=== PATIENT | male | born 1965 | race Caucasian/White ===

== ENCOUNTER 2016-11-22 14:40 | Observation (INO) | payer OTHER ==
[2016-11-22] VITALS (7 sets, daily range): BP systolic 141–178; BP diastolic 97–108; PULSE 64–84; RESP 18–21; TEMP 97.6–98; O2SAT 97–99
[~2016-11-22] VITALS: Ht 190.5 cm; Wt 97.0 kg
--- NOTE | 2016-11-22 14:55 | PD ---
Physical Exam Date Seen by Provider: Nov 22, 2016 Time Seen by Provider: 14:54 Narrative 50 yo male here for chest pain. No ACS history. Has had this since yesterday. Some SOB. No radiation of the pain. Pain is 7/10. Pain at this moment. Vitals are stable in triage. Awaiting Bed placement. Data Data Last Documented VS Vital Signs Date Time Temp Pulse Resp B/P (MAP) Pulse Ox O2 Delivery O2 Flow Rate FiO2 11/22/16 14:41 75 20 178/108 (131) 98 MDM Medical Record Reviewed: Yes Supervised Visit with KRISHAN: King Estrada Nov 22, 2016 14:55
[2016-11-22 15:29] LABS: BASOPHIL % 0.3 % (0.0-2.0); EOSINOPHIL # 0.1 TH/MM3 (0-0.4); HEMATOCRIT 42.4 % (39.0-51.0); HEMO FLAGS DIFF FINAL; LYMPH % 38.5 % (9.0-44.0); LYMPHOCYTE # 2.3 TH/MM3 (1.0-4.8); MEAN CELL VOLUME 90.3 FL (80.0-100.0); MEAN CORPUSCULAR HEMOGLOBIN 30.9 PG (27.0-34.0); MEAN CORPUSCULAR HGB CONC 34.2 % (32.0-36.0); MONO % 8.8 % (0.0-8.0); NEUT % 50.4 % (16.0-70.0); PLATELET COUNT 182 TH/MM3 (150-450); RED CELL DISTRIBUTION WIDTH 12.8 % (11.6-17.2); WHITE BLOOD COUNT 6.1 TH/MM3 (4.0-11.0)
[2016-11-22 15:38] LABS: APTT (PATIENT) 26.4 SEC (24.3-30.1); INTERNATIONAL NORMALIZED RATIO 0.9 RATIO; PROTHROMBIN TIME - PATIENT 10.3 SEC (9.8-11.6)
--- NOTE | 2016-11-22 15:40 | RADRPT ---
EXAM DATE/TIME: 11/22/2016 15:23 [place] COMPARISON: No previous studies available for comparison. INDICATIONS : Chest pain last night. Short of breath MEDICAL HISTORY : None. SURGICAL HISTORY : None. ENCOUNTER: Initial ACUITY: 1 day PAIN SCORE: 7/10 LOCATION: Bilateral chest FINDINGS: PA and lateral views of the chest demonstrate the lungs to be symmetrically aerated without evidence of mass, infiltrate or effusion. The cardiomediastinal contours are unremarkable. Osseous structure s are intact. CONCLUSION: Normal examination. Yohan Flores Jr., MD on November 22, 2016 at 15:38 Board Certified Radiologist. This report was verified electronically.
--- NOTE | 2016-11-22 15:42 | PD ---
HPI Chief Complaint: Chest Pain Time Seen by Provider: 15:36 Travel History International Travel<30 days: No Contact w/Intl Traveler<30days: No Traveled to known affect area: No History of Present Illness HPI 50-year-old male with no significant medical history presents to emergency department for evaluation of left-sided chest pain. He first experienced it last evening when he was getting ready for bed. He states it has waxed and waned throughout the day. When he is experiencing it, he has a lightheaded sensation and aching numbness or tingling in his left arm. He cannot think of any exacerbating or alleviating factors. 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 Denies any cardiac history. Denies a familial cardiac history. He does not take any current medications. He did take 2 aspirin this morning. He denies any recent illnesses, fever, or chills. No nausea or vomiting. No abdominal pain. He has no other symptoms to report. FORMERLY [facility] Past Medical History Medical History: Denies Significant Hx Social History Alcohol Use: Yes Tobacco Use: No Substance Use: No Allergies-Medications (Allergen,Severity, Reaction): Coded Allergies: No Known Allergies (Unverified , 11/22/16) Reported Meds & Prescriptions Reported Meds & Active Scripts Active No Active Prescriptions or Reported Medications Review of Systems Except as stated in HPI: all other systems reviewed are Neg Physical Exam Narrative GENERAL: Well-nourished male patient, in no acute distress. SKIN: Focused skin assessment warm/dry. HEAD: Atraumatic. Normocephalic. EYES: Pupils equal and round. No scleral icterus. No injection or drainage. ENT: No nasal bleeding or discharge. Mucous membranes pink and moist. NECK: Trachea midline. No JVD. CARDIOVASCULAR: Regular rate and rhythm. No murmur appreciated. RESPIRATORY: No accessory muscle use. Clear to auscultation. Breath sounds equal bilaterally. GASTROINTESTINAL: Abdomen soft, non-tender, nondistended. Hepatic and splenic margins not palpable. MUSCULOSKELETAL: No obvious deformities. No clubbing. No cyanosis. No edema. NEUROLOGICAL: Awake and alert. No obvious cranial nerve deficits. Motor grossly within normal limits. Normal speech. PSYCHIATRIC: Appropriate mood and affect; insight and judgment normal. Data Data Last Documented VS Vital Signs Date Time Temp Pulse Resp B/P (MAP) Pulse Ox O2 Delivery O2 Flow Rate FiO2 11/22/16 15:46 68 21 151/103 (119) 97 Room Air Orders Orders Electrocardiogram (11/22/16 14:52) Basic Metabolic Panel (Bmp) (11/22/16 14:52) Ckmb (Isoenzyme) Profile (11/22/16 14:52) Complete Blood Count With Diff (11/22/16 14:52) Magnesium (Mg) (11/22/16 14:52) Prothrombin Time / Inr (Pt) (11/22/16 14:52) Act Partial Throm Time (Ptt) (11/22/16 14:52) Troponin I (11/22/16 14:52) Lipase (11/22/16 14:52) Chest, Pa & Lat (11/22/16 14:52) Admit Order (Ed Use Only) (11/22/16 15:59) Labs Laboratory Tests Test 11/22/16 15:03 White Blood Count 6.1 TH/MM3 Red Blood Count 4.70 MIL/MM3 Hemoglobin 14.5 GM/DL Hematocrit 42.4 % Mean Corpuscular Volume 90.3 FL Mean Corpuscular Hemoglobin 30.9 PG Mean Corpuscular Hemoglobin Concent 34.2 % Red Cell Distribution Width 12.8 % Platelet Count 182 TH/MM3 Mean Platelet Volume 7.7 FL Neutrophils (%) (Auto) 50.4 % Lymphocytes (%) (Auto) 38.5 % Monocytes (%) (Auto) 8.8 % Eosinophils (%) (Auto) 2.0 % Basophils (%) (Auto) 0.3 % Neutrophils # (Auto) 3.0 TH/MM3 Lymphocytes # (Auto) 2.3 TH/MM3 Monocytes # (Auto) 0.5 TH/MM3 Eosinophils # (Auto) 0.1 TH/MM3 Basophils # (Auto) 0.0 TH/MM3 CBC Comment DIFF FINAL Differential Comment Prothrombin Time 10.3 SEC Prothromb Time International Ratio 0.9 RATIO Activated Partial Thromboplast Time 26.4 SEC Blood Urea Nitrogen 10 MG/DL Creatinine 1.08 MG/DL Random Glucose 82 MG/DL Calcium Level 8.8 MG/DL Magnesium Level 2.2 MG/DL Sodium Level 139 MEQ/L Potassium Level 4.1 MEQ/L Chloride Level 103 MEQ/L Carbon Dioxide Level 30.3 MEQ/L Anion Gap 6 MEQ/L Estimat Glomerular Filtration Rate 73 ML/MIN Total Creatine Kinase 78 U/L Troponin I LESS THAN 0.02 NG/ML Lipase 186 U/L [facility] Medical Decision Making Medical Screen Exam Complete: Yes Emergency Medical Condition: Yes Medical Record Reviewed: Yes Differential Diagnosis ACS versus chest wall pain versus pleuritic pain versus muscle spasm Narrative Course 50-year-old male presents to the emergency department for evaluation of left- sided chest pain. Patient appears without distress. States that the pain and symptoms wax and wane. He has had no cardiac history to report at this time. Lab work was initiated in triage. EKG was normal sinus rhythm without any ST elevation or depression. Laboratory Tests Test 11/22/16 15:03 White Blood Count 6.1 TH/MM3 Red Blood Count 4.70 MIL/MM3 Hemoglobin 14.5 GM/DL Hematocrit 42.4 % Mean Corpuscular Volume 90.3 FL Mean Corpuscular Hemoglobin 30.9 PG Mean Corpuscular Hemoglobin Concent 34.2 % Red Cell Distribution Width 12.8 % Platelet Count 182 TH/MM3 Mean Platelet Volume 7.7 FL Neutrophils (%) (Auto) 50.4 % Lymphocytes (%) (Auto) 38.5 % Monocytes (%) (Auto) 8.8 % Eosinophils (%) (Auto) 2.0 % Basophils (%) (Auto) 0.3 % Neutrophils # (Auto) 3.0 TH/MM3 Lymphocytes # (Auto) 2.3 TH/MM3 Monocytes # (Auto) 0.5 TH/MM3 Eosinophils # (Auto) 0.1 TH/MM3 Basophils # (Auto) 0.0 TH/MM3 CBC Comment DIFF FINAL Differential Comment Prothrombin Time 10.3 SEC Prothromb Time International Ratio 0.9 RATIO Activated Partial Thromboplast Time 26.4 SEC Blood Urea Nitrogen 10 MG/DL Creatinine 1.08 MG/DL Random Glucose 82 MG/DL Calcium Level 8.8 MG/DL Magnesium Level 2.2 MG/DL Sodium Level 139 MEQ/L Potassium Level 4.1 MEQ/L Chloride Level 103 MEQ/L Carbon Dioxide Level 30.3 MEQ/L Anion Gap 6 MEQ/L Estimat Glomerular Filtration Rate 73 ML/MIN Total Creatine Kinase 78 U/L Troponin I LESS THAN 0.02 NG/ML Lipase 186 U/L Lab work is without acute concern. Troponin is less than 0.02. Lipase is 186. Patient will be admitted observation to the chest pain center for further evaluation. Diagnosis Primary Impression: Chest pain Qualified Codes: R07.9 - Chest pain, unspecified Admitting Information Admitting Physician Requests: Observation Scripts No Active Prescriptions or Reported Meds Condition: Ilda Nicholas Nov 22, 2016 15:42
[2016-11-22 15:44] LABS: ANION GAP 6 MEQ/L (5-15); BICARBONATE 30.3 MEQ/L (21.0-32.0); BLOOD UREA NITROGEN 10 MG/DL (7-18); CHLORIDE 103 MEQ/L (98-107); GLOMERULAR FILTRATION RATE 73 ML/MIN (>89); MAGNESIUM 2.2 MG/DL (1.5-2.5); POTASSIUM 4.1 MEQ/L (3.5-5.1); SODIUM (NA) 139 MEQ/L (136-145)
[2016-11-22 15:55] LABS: CREATINE KINASE 78 U/L (39-308)
[2016-11-22] MEDS ORDERED: SODIUM CHLORIDE 0.9% FLUSH 10 ML FLUSH IV FLUSH PRN (16:30)
[2016-11-22] MEDS ORDERED: ACETAMINOPHEN 500 MG CPLT PO PRN (16:30)
[2016-11-22] MEDS ORDERED: NITROGLYCERIN 0.4 MG SL 25 TABS/BTL SL PRN (16:30)
[2016-11-22] MEDS ORDERED: ONDANSETRON HCL 4 MG/2 ML VIAL IV PRN (16:30)
--- NOTE | 2016-11-22 18:33 | HHI.HP ---
HPI Primary Care Physician Duncan Mercado DO Chief Complaint Chest pain History of Present Illness 50-year-old male with no significant medical history presents to emergency room for further evaluation of chest pain. Onset last evening. Nonexertional. Characterized as sharp and pressure like. Location left anterior chest. Radiation to left arm and left shoulder blade. Described left arm radiation as tingling and left shoulder blade as sharp stabbing pain. Associated symptoms included shortness of breath, hurt to breathe, and dizziness. No associated nausea or vomiting. Symptoms have waxed and waned. No known precipitating or relieving factors. Denies similar pain in the past. No known trauma or injury. Review of Systems General: No fatigue,weakness, fever, chills, or recent illness. Has been in his general state of health. Exercises regularly without any exertional chest discomfort. HEENT: No IVORY, no nasal congestion or drainage, no dysphasia CV: As stated above. No current CP or pressure. RESP: No SOB, cough, sputum production, or history of asthma GI: No nausea, vomiting, bowel changes, diarrhea, pain, or blood in the stool. No change in appetite, no unintentional weight gain or weight loss. : No dysuria or history of kidney stones EXT: No lower leg edema, no paraesthesias MS: No discomfort or change in ROM NEURO: No difficulty with balance, LOC, motor/sensory deficits PSYCH: No anxiety, depression, or situational stress SKIN: No rashes, no concerning lesions Past Family Social History Allergies: Coded Allergies: No Known Allergies (Unverified , 11/22/16) Past Medical History Hypertension-currently not on medication, he is attempting lifestyle modifications Past Surgical History Appendectomy, ask surgery, 2 umbilical hernia repair, penile implant Reported Medications Active No Active Prescriptions or Reported Medications Active Ordered Medications Current Medications Medications (Trade) Dose Ordered Sig/Lynn Route Start Time Stop Time Status Last Admin (NS Flush) 2 ml UNSCH PRN IV FLUSH 11/22/16 16:30 (NS Flush) 2 ml BID IV FLUSH 11/22/16 21:00 (Tylenol) 500 mg Q4H PRN PO 11/22/16 16:30 (Zofran Inj) 4 mg Q6H PRN IV 11/22/16 16:30 (Nitrostat Sl) 0.4 mg Q5M PRN SL 11/22/16 16:30 (Aspirin) 325 mg DAILY PO 11/23/16 09:00 Family History Noncontributory for early onset cardiovascular disease Social History No known diabetes or hyperlipidemia. Has been told he is hypertensive currently attempting lifestyle modifications. Lifelong nonsmoker. Endorses alcohol use 2-3 times weekly. Denies any illegal drug use. Endorses an active lifestyle attends gym 2-3/weekly. Past cardiac testing None Physical Exam Vital Signs Vital Signs Date Time Temp Pulse Resp B/P (MAP) Pulse Ox O2 Delivery O2 Flow Rate FiO2 11/22/16 18:21 64 11/22/16 17:40 97.6 65 18 141/97 (112) 99 11/22/16 17:10 11/22/16 17:07 97 21 11/22/16 17:05 11/22/16 15:46 68 21 151/103 (119) 97 Room Air 11/22/16 15:41 21 97 Room Air 11/22/16 14:41 75 20 178/108 (131) 98 Physical Exam GENERAL: Alert WN, WD, NAD, pleasant, male HEAD: NC, AT EYES: Sclera clear CV: RRR, without murmur, rub, gallop, no JVD, S1-S2 no S3-S4. No carotid bruits. RESP: Clear lungs throughout bilateral, no crackles, wheeze, rhonchi, symmetrical chest rise, nonlabored, able to speak in full sentences ABD: Soft, NT, ND, no masses, positive bowel tones EXT: Pulses +24, no dependent edema MS: Normal tone 4 extremities, nontender, no obvious deformities, full range of motion NEURO: CN II through CN XII grossly intact, motor strength 5/5 PSYCH: A+O 3, pleasant affect, appropriate speech, appropriate mood and affect , insight and judgment SKIN: Normal turgor, normal texture, brisk cap refill, even hair distribution, abdominal surgical scar Laboratory Laboratory Tests Test 11/22/16 15:03 11/22/16 18:06 White Blood Count 6.1 Red Blood Count 4.70 Hemoglobin 14.5 Hematocrit 42.4 Mean Corpuscular Volume 90.3 Mean Corpuscular Hemoglobin 30.9 Mean Corpuscular Hemoglobin Concent 34.2 Red Cell Distribution Width 12.8 Platelet Count 182 Mean Platelet Volume 7.7 Neutrophils (%) (Auto) 50.4 Lymphocytes (%) (Auto) 38.5 Monocytes (%) (Auto) 8.8 Eosinophils (%) (Auto) 2.0 Basophils (%) (Auto) 0.3 Neutrophils # (Auto) 3.0 Lymphocytes # (Auto) 2.3 Monocytes # (Auto) 0.5 Eosinophils # (Auto) 0.1 Basophils # (Auto) 0.0 CBC Comment DIFF FINAL Differential Comment Prothrombin Time 10.3 Prothromb Time International Ratio 0.9 Activated Partial Thromboplast Time 26.4 Blood Urea Nitrogen 10 Creatinine 1.08 Random Glucose 82 Calcium Level 8.8 Magnesium Level 2.2 Sodium Level 139 Potassium Level 4.1 Chloride Level 103 Carbon Dioxide Level 30.3 Anion Gap 6 Estimat Glomerular Filtration Rate 73 Total Creatine Kinase 78 Troponin I LESS THAN 0.02 Lipase 186 Result Diagram: 11/22/16 1503 11/22/16 1503 Imaging Last Impressions Chest X-Ray 11/22/16 1452 Signed Impressions: Service Date/Time: Tuesday, November 22, 2016 15:23 - CONCLUSION: Normal examination. Yohan Flores Jr., MD Course EKG Normal sinus rhythm, normal axis, no ST or T-segment change Caprini VTE Risk Assessment Caprini VTE Risk Assessment: No/Low Risk (score <= 1) Caprini Risk Assessment Model Point Value = 1 Point Value = 2 Point Value = 3 Point Value = 5 Age 41-60 Minor surgery BMI > 25 kg/m2 Swollen legs Varicose veins or History of unexplained or recurrent spontaneous Oral contraceptives or hormone replacement Sepsis (< 1 month) Serious lung disease, including pneumonia (< 1 month) Abnormal pulmonary function Acute myocardial infarction Congestive heart failure (< 1 month) History of inflammatory bowel disease Medical patient at bed rest Age 61-74 Arthroscopic surgery Major open surgery (> 45 min) Laparoscopic surgery (> 45 min) Malignancy Confined to bed (> 72 hours) Immobilizing plaster cast Central venous access Age >= 75 History of VTE Family history of VTE Factor V Leiden Prothrombin [id number] Lupus anticoagulant Anticardiolipin antibodies Elevated serum homocysteine Heparin-induced thrombocytopenia Other congenital or acquired thrombophilia Stroke (< 1 month) Elective arthroplasty Hip, pelvis, or leg fracture Acute spinal cord injury (< 1 month) Prophylaxis Regimen Total Risk Factor Score Risk Level Prophylaxis Regimen 0-1 Low Early ambulation 2 Moderate Order ONE of the following: *Sequential Compression Device (SCD) *Heparin 5000 units SQ BID 3-4 Higher Order ONE of the following medications: *Heparin 5000 units SQ TID *Enoxaparin/Lovenox 40 mg SQ daily (WT < 150 kg, CrCl > 30 mL/min) *Enoxaparin/Lovenox 30 mg SQ daily (WT < 150 kg, CrCl > 10-29 mL/min) *Enoxaparin/Lovenox 30 mg SQ BID (WT < 150 kg, CrCl > 30 mL/min) AND/OR *Sequential Compression Device (SCD) 5 or more Highest Order ONE of the following medications: *Heparin 5000 units SQ TID (Preferred with Epidurals) *Enoxaparin/Lovenox 40 mg SQ daily (WT < 150 kg, CrCl > 30 mL/min) *Enoxaparin/Lovenox 30 mg SQ daily (WT < 150 kg, CrCl > 10-29 mL/min) *Enoxaparin/Lovenox 30 mg SQ BID (WT < 150 kg, CrCl > 30 mL/min) AND *Sequential Compression Device (SCD) Assessment and Plan Assessment and Plan Atypical chest pain-admitted to chest pain center. Ruled out with 3 sets of EKGs, cardiac enzymes, monitor overnight. Will be seen and evaluated by Dr. Martin Garcia in a.m. Discussed the likelihood with patient most likely will complete an exercise stress test in a.m. Patient agreeable to plan of care. Hypertension-Discussed possibility of adding blood pressure medications to current lifestyle modifications at discharge. Continue BP monitor overnight to determine if BP medication regimen required. Educated on importance of tight blood pressure control and possible effects of uncontrolled hypertension in length. Start lisinopril 10 mg daily. Follow up with PCP. Ayaka Stratton Nov 22, 2016 18:33
[2016-11-22 19:05] LABS: CREATINE KINASE 69 U/L (39-308)
[2016-11-22] MEDS: LISINOPRIL 10 MG TAB PO SCH (20:00)
[2016-11-22] MEDS: SODIUM CHLORIDE 0.9% FLUSH 10 ML FLUSH IV FLUSH SCH (21:00)
[2016-11-22 22:35] LABS: CREATINE KINASE 56 U/L (39-308)
[2016-11-23 00:02] VITALS: BP 133/76; PULSE 77; RESP 18; TEMP 97.6; O2SAT 98
[2016-11-23 03:40] VITALS: BP 112/66; PULSE 74; RESP 18; TEMP 97.7; O2SAT 97
[2016-11-23 07:38] VITALS: PULSE 64
[2016-11-23 07:39] VITALS: BP 121/82; PULSE 68; RESP 18; TEMP 97.7; O2SAT 97
[2016-11-23] MEDS: SODIUM CHLORIDE 0.9% FLUSH 10 ML FLUSH IV FLUSH SCH (07:59)
[2016-11-23] MEDS: LISINOPRIL 10 MG TAB PO SCH (08:00)
[2016-11-23] MEDS ORDERED: ASPIRIN 325 MG TAB PO SCH (09:00)
--- NOTE | 2016-11-23 09:40 | HHI.DCPOC ---
Discharge Care Plan Diagnosis: (1) Chest pain Goals to Promote Your Health * To prevent worsening of your condition and complications * To maintain your health at the optimal level Directions to Meet Your Goals Take your medications as prescribed Follow your dietary instruction Follow activity as directed Keep your appointments as scheduled Take your immunizations and boosters as scheduled If your symptoms worsen call your PCP, if no PCP go to Urgent Care Center or Emergency Room Smoking is Dangerous to Your Health. Avoid second hand smoke Call the 24-hour hour crisis hotline for domestic abuse at [place] Nov 23, 2016 09:40
--- NOTE | 2016-11-23 16:28 | EKG ---
Date Performed: 11/22/2016 Time Performed: 21:11:02 PTAGE: 50 years EKG: Sinus rhythm POSSIBLE LEFT ATRIAL ENLARGEMENT BORDERLINE ECG PREVIOUS TRACING : 11/22/2016 17.54 Since previous tracing, no significant change noted DOCTOR: Martin Garcia Interpretating Date/Time 11/23/2016 16:28:29
--- NOTE | 2016-11-23 16:31 | EKG ---
Date Performed: 11/22/2016 Time Performed: 17:54:18 PTAGE: 50 years EKG: Sinus rhythm NORMAL ECG PREVIOUS TRACING : 11/22/2016 14.47 Since previous tracing, no significant change noted DOCTOR: Martin Garcia Interpretating Date/Time 11/23/2016 16:30:46
--- NOTE | 2016-11-23 16:34 | EKG ---
Date Performed: 11/22/2016 Time Performed: 14:47:41 PTAGE: 50 years EKG: Sinus rhythm POSSIBLE LEFT ATRIAL ENLARGEMENT BORDERLINE ECG PREVIOUS TRACING : 10/09/2000 14.18 Since previous tracing, no significant change noted DOCTOR: Martin Garcia Interpretating Date/Time 11/23/2016 16:33:14
--- NOTE | 2016-11-23 16:38 | TR ---
Date Performed: 11/23/2016 Time Performed: 09:06:35 DOCTOR: Martin Garcia DRUG LIST: CLINICAL HISTORY: CHEST PAIN REASON FOR TEST: REASON FOR ENDING: OBSERVATION: CONCLUSION: SANJAY PROTOCOL. NO CP. TEST STOPPED AFTER EXCEEDING GOAL HR SECONDARY TO SOB AND LEG FATIGUE.Maximum GW=992 % Max HR Achieved=93.0% Maximum PF=150/76 Total Exercise Time=11:00 COMMENTS: Patient exercised using the Sanjay protocol. No electrocardiographic changes were seen to suggest ischemia. Hemodynamic response to exercise was normal. No significant arrhythmia was prese nt.
== END 2016-11-23 10:40 | disposition home or self-care (01) ==
LOC: NEPC 14:40 → NEDA 16:00 → NEPFCDU 17:15
PROVIDERS: ADMIT Internal Medicine Interventional Cardiology; ATTEND Internal Medicine Interventional Cardiology
DX: R07.89 Other chest pain (principal); R94.31 Abnormal electrocardiogram [ECG] [EKG]; I10 Essential (primary) hypertension
CPT/HCPCS: 71020; 80048; 82550; 83690; 83735; 84484; 85025; 85610; 85730; 93005; 93017; 99285; G0378